=== PATIENT | female | born 1985 | race African-American/Black ===

== ENCOUNTER 2020-07-16 18:56 | Emergency (ER) | payer OTHER ==
[2020-07-16] MEDS ORDERED: NA CHLORIDE 0.9% 1,000 ML ONE (22:00)
[2020-07-16 22:42] LABS: Absolute Lymphocytes (CBC) 2.5 K/uL (0.7-4.9); Basophils % 0.5 % (0-1.3); Hematocrit 47.9 % (36.0-45.0); Lymphocytes % 14.4 % (15.3-44.8); MPV 8.7 fL (7.6-11.3); Protime INR 1.82; RBC Red Blood Cell Count 5.74 M/uL (3.86-4.86)
[2020-07-16] MEDS ORDERED: METHYLPREDNISOLONE 125 MG INJ ONE (22:55)
[2020-07-16] MEDS ORDERED: ALBUTEROL 2.5 MG/3 ML NEB SOL ONE (22:55)
[2020-07-16] MEDS ORDERED: IPRATROPIUM BROM 0.5MG/2.5ML ONE (22:55)
[2020-07-16] MEDS ORDERED: AZITHROMYCIN 500 MG INJ IVPB ONE (22:56)
[2020-07-16] MEDS ORDERED: NA CHLORIDE 0.9% 250 ML ONE (22:56)
[2020-07-16] MEDS ORDERED: FAMOTIDINE 20 MG/2 ML VIAL IV ONE (22:56)
[2020-07-16] MEDS ORDERED: CEFTRIAXONE/SWI 1gm 1 GM/10 ML SYR ONE (22:56)
[2020-07-16 23:11] LABS: ALT/SGPT 27 U/L (12-78); AST/SGOT 28 U/L (15-37); Albumin 2.9 g/dL (3.4-5.0); Alkaline Phosphatase 89 U/L (45-117); BUN Blood Urea Nitrogen 11 mg/dL (7-18); Bicarbonate 26 mmol/L (21-32); Bilirubin Direct 0.1 mg/dL (0-0.2); Bilirubin Total 0.6 mg/dL (0.2-1.0); Glucose Level 114 mg/dL (74-106); Lipase 2078 U/L (73-393); Magnesium 2.1 mg/dL (1.8-2.4); NT PRO-BNP 1098 pg/mL (<125); Potassium 3.5 mmol/L (3.5-5.1); Protein, Total 7.8 g/dL (6.4-8.2); Sodium Level 138 mmol/L (136-145); Troponin (Emerg Dept Use Only) < 0.02 ng/mL (0.0-0.045)
[2020-07-17] MEDS ORDERED: NITROGLYCERIN 1 GM PKT TD ONE (00:56)
[2020-07-17] MEDS ORDERED: ACETAMINOPHEN 500 MG TAB ONE (00:56)
--- NOTE | 2020-07-17 01:00 | ER ---
Nurse's Notes [facility] Name: Mary Pro Age: 34 yrs Sex: Female : 1985 Arrival Date: 07/16/2020 Time: 18:59 Bed 14 Private MD: Diagnosis: Pneumonia, unspecified organism-multifocal , bilateral;Unspecified systolic (congestive) heart failure;Atrial fibrillation and flutter;Essential (primary) hypertension;Obesity, unspecified Presentation: 07/16 19:11 Chief complaint: Patient states: Cough, SOB, dry mouth for 5 days. Covid test negative ll1 Thursday at [place]. No fever. No appetite. Coronavirus screen: Client denies travel out of the [place] in the last 14 days. congestion, cough unrelated to allergies, fatigue, Client presents with at least one sign or symptom that may indicate coronavirus-19. Standard/surgical mask placed on the client. The client reports previous COVID testing was negative. Ebola Screen: Patient denies travel to an Ebola-affected area in the 21 days before illness onset. Initial Sepsis Screen: Does the patient meet any 2 criteria? HR > 90 bpm. No. Patient's initial sepsis screen is negative. Does the patient have a suspected source of infection? Yes: Productive cough/pneumonia. Risk Assessment: Do you want to hurt yourself or someone else? Patient reports no desire to harm self or others. Onset of symptoms was July 11, 2020. 19:11 Method Of Arrival: Ambulatory ll1 19:11 Acuity: ROEL 3 ll1 Historical: - Allergies: 19:15 NKDA; ll1 - PMHx: 19:15 Atrial Fib; Hypertension; ll1 - PSHx: 19:15 mirtral valve replacement; Cholecystectomy; ll1 - Immunization history:: Flu vaccine is not up to date. - Social history:: Smoking status: Patient reports the use of cigarette tobacco products, smokes one-half pack cigarettes per day. - Family history:: not pertinent. Screenin:05 Abuse screen: Denies threats or abuse. Nutritional screening: No deficits noted. jb4 Tuberculosis screening: No symptoms or risk factors identified. Fall Risk None identified. Assessment: 21:05 General: Appears in no apparent distress. uncomfortable, Behavior is calm, cooperative, jb4 appropriate for age. Pain: Complains of pain in chest Pain does not radiate. Pain currently is 8 out of 10 on a pain scale. Neuro: Level of Consciousness is awake, alert, obeys commands, Oriented to person, place, time, situation. Cardiovascular: Patient's skin is warm and dry. Rhythm is atrial fibrillation. Respiratory: Airway is patent Respiratory effort is even, unlabored, Respiratory pattern is regular, symmetrical, Breath sounds with wheezes bilaterally. GI: No signs and/or symptoms were reported involving the gastrointestinal system. : No signs and/or symptoms were reported regarding the genitourinary system. EENT: No signs and/or symptoms were reported regarding the EENT system. Derm: Skin is intact, Skin is dry, Skin is normal. Musculoskeletal: Circulation, motion, and sensation intact. Range of motion: intact in all extremities. 22:00 Reassessment: Patient appears in no apparent distress at this time. Patient and/or jb4 family updated on plan of care and expected duration. Pain level reassessed. Patient is alert, oriented x 3, equal unlabored respirations, skin warm/dry/pink. 22:51 General: patient refused flu and covid test. she said it was negative in [address] last Thursday. . 23:00 Reassessment: Patient appears in no apparent distress at this time. Patient and/or jb4 family updated on plan of care and expected duration. Pain level reassessed. Patient is alert, oriented x 3, equal unlabored respirations, skin warm/dry/pink. Patient states feeling better. Patient states symptoms have improved. 07/17 00:00 Reassessment: Patient appears in no apparent distress at this time. Patient and/or jb4 family updated on plan of care and expected duration. Pain level reassessed. Patient is alert, oriented x 3, equal unlabored respirations, skin warm/dry/pink. 01:00 Reassessment: Patient appears in no apparent distress at this time. Patient and/or jb4 family updated on plan of care and expected duration. Pain level reassessed. Patient is alert, oriented x 3, equal unlabored respirations, skin warm/dry/pink. PT verbalized desire to leave, informed that per physicians advice it would be best to stay. Pt refused. Informed that symptoms could return or worsen to the point of . Pt acknowledged and verbalized understanding of risk. AMA form signed. Vital Signs: 07/16 19:11 BP 156 / 103; Pulse 97; Resp 20; Temp 98.1; Pulse Ox 95% on R/A; Weight 145.15 kg; ll1 Height 5 ft. 4 in. (162.56 cm); Pain 8/10; 23:00 BP 139 / 101; Pulse 61; Resp 16; Pulse Ox 93% on R/A; jb4 07/17 00:15 BP 146 / 111; Pulse 87; Resp 16; Pulse Ox 96% on R/A; jb4 01:00 BP 121 / 88; Pulse 86; Resp 16; Pulse Ox 98% on R/A; jb4 07/16 19:11 Body Mass Index 54.93 (145.15 kg, 162.56 cm) ll1 ED Course: 07/16 18:59 Patient arrived in ED. rg4 19:11 Arm band placed on. ll1 19:14 Triage completed. ll1 21:05 Patient has correct armband on for positive identification. Bed in low position. Call jb4 light in reach. Side rails up X 1. Pulse ox on. NIBP on. 21:12 Adithya Epperson MD is Attending Physician. tim 21:37 Gerry Fowler, ANGELO is Primary Nurse. jb4 22:20 Inserted saline lock: 20 gauge in right antecubital area, using aseptic technique. mg2 Blood collected. 22:42 XRAY Chest (1 view) In Process Unspecified. EDMS 22:50 No provider procedures requiring assistance completed. mg2 07/17 00:12 CT Chest For PE Angio In Process Unspecified. EDMS 00:57 Glen Malhotra MD is Referral Physician. tim 00:57 Damien Melendez MD is Referral Physician. tim 01:14 IV discontinued, intact, bleeding controlled, No redness/swelling at site. Pressure jb4 dressing applied. Administered Medications: 07/16 22:30 Drug: NS 0.9% 1000 ml Route: IV; Rate: 125 ml/hr; Site: right antecubital; mg2 07/17 01:25 Follow up: Response: No adverse reaction; IV Status: Order to discontinue infusion; IV jb4 Intake: 300ml ; PT refused to continue infusion. 07/16 22:49 Drug: Albuterol - atroVENT (3:1) (2.5 mg - 0.5 mg) 3 ml Route: Nebulizer; mg2 23:15 Follow up: Response: No adverse reaction; Marked relief of symptoms jb4 22:49 Drug: Pepcid 20 mg Route: IVP; Site: right antecubital; mg2 23:15 Follow up: Response: No adverse reaction jb4 22:50 Drug: Rocephin 1 grams Route: IV; Rate: per protocol; Site: right antecubital; mg2 23:00 Follow up: Response: No adverse reaction; IV Status: Completed infusion; IV Intake: [id number] 22:50 Drug: Zithromax 500 mg Route: IVPB; Infused Over: 1 hrs; Site: right antecubital; mg2 23:50 Follow up: Response: No adverse reaction; IV Status: Completed infusion; IV Intake: jb4 250ml 22:50 Drug: SOLU-Medrol 125 mg Route: IVP; Site: right antecubital; mg2 23:20 Follow up: Response: No adverse reaction 4 07/17 00:55 Not Given (Duplicate Order): Nitro-Bid Ointment 2 % 1 inches Transdermal once tim 01:14 Drug: Coumadin 5 mg Route: PO; jb4 01:17 Follow up: Response: Medication administered at discharge. jb4 01:15 Drug: Tylenol 1000 mg Route: PO; jb4 01:16 Follow up: Response: Medication administered at discharge. jb4 01:15 Not Given (Patient Refused): Losartan 100 mg PO once jb4 01:15 Drug: Lasix 20 mg Route: IVP; Site: right antecubital; jb4 01:16 Follow up: Response: Medication administered at discharge. jb4 01:15 Drug: Decadron - Dexamethasone 6 mg Route: IVP; Site: right antecubital; jb4 01:16 Follow up: Response: Medication administered at discharge. jb4 Intake: 07/16 23:00 IV: 10ml; Total: 10ml. 4 23:50 IV: 250ml; Total: 260ml. jb4 07/17 01:25 IV: 300ml; Total: 560ml. jb4 Outcome: 01:14 AMA AMA form signed 4 01:14 Condition: stable 01:14 Discharge instructions given to patient, Instructed on discharge instructions, follow up and referral plans. medication usage, Demonstrated understanding of instructions, follow-up care, medications, Prescriptions given X 4. 01:27 Patient left the ED. jb4 Signatures: Dispatcher [employer] EDMS Adithya Epperson MD MD cha Garcia, Rubi rg4 Gerry Fowler RN RN jb4 Toby Youssef RN RN mg2 Sanjuanita Grimm RN RN ll1
--- NOTE | 2020-07-17 01:00 | EDPHYS ---
Physician Documentation [facility] Name: Mary Pro Age: 34 yrs Sex: Female : 1985 Arrival Date: 07/16/2020 Time: 18:59 Bed 14 Private MD: ED Physician Adithya Epperson HPI: 07/16 21:51 This 34 yrs old Black Female presents to ER via Ambulatory with complaints of Breathing tim Difficulty, Cough. 21:51 The patient has shortness of breath at rest, with light activity. Onset: The tim symptoms/episode began/occurred 5 day(s) ago. Duration: The symptoms are continuous, and are steadily getting worse. The patient's shortness of breath is aggravated by coughing, light activity, supine position, is alleviated by sitting up, application of supplemental oxygen. Associated signs and symptoms: The patient has no apparent associated signs or symptoms. Severity of symptoms: At their worst the symptoms were mild moderate in the emergency department the symptoms are unchanged. The patient has experienced similar episodes in the past, a few times. Historical: - Allergies: 19:15 NKDA; ll1 - PMHx: 19:15 Atrial Fib; Hypertension; ll1 - PSHx: 19:15 mirtral valve replacement; Cholecystectomy; ll1 - Immunization history:: Flu vaccine is not up to date. - Social history:: Smoking status: Patient reports the use of cigarette tobacco products, smokes one-half pack cigarettes per day. - Family history:: not pertinent. ROS: 21:51 Constitutional: Negative for fever, chills, and weight loss, Eyes: Negative for injury, tim pain, redness, and discharge, ENT: Negative for injury, pain, and discharge, Neck: Negative for injury, pain, and swelling, Cardiovascular: Negative for chest pain, palpitations, and edema, Abdomen/GI: Negative for abdominal pain, nausea, vomiting, diarrhea, and constipation, Back: Negative for injury and pain, : Negative for injury, bleeding, discharge, and swelling, MS/Extremity: Negative for injury and deformity, Skin: Negative for injury, rash, and discoloration, Neuro: Negative for headache, weakness, numbness, tingling, and seizure, Psych: Negative for depression, anxiety, suicide ideation, homicidal ideation, and hallucinations, Allergy/Immunology: Negative for hives, rash, and allergies, Endocrine: Negative for neck swelling, polydipsia, polyuria, polyphagia, and marked weight changes. 21:51 Respiratory: Positive for cough, "sounds productive", shortness of breath, at rest. wheezing, inspiratory, expiratory. 21:51 MS/extremity: Negative for acute changes. Exam: 21:51 Constitutional: This is a well developed, well nourished patient who is awake, alert, tim and in no acute distress. Head/Face: Normocephalic, atraumatic. Eyes: Pupils equal round and reactive to light, extra-ocular motions intact. Lids and lashes normal. Conjunctiva and sclera are non-icteric and not injected. Cornea within normal limits. Periorbital areas with no swelling, redness, or edema. ENT: Nares patent. No nasal discharge, no septal abnormalities noted. Tympanic membranes are normal and external auditory canals are clear. Oropharynx with no redness, swelling, or masses, exudates, or evidence of obstruction, uvula midline. Mucous membranes moist. Neck: Trachea midline, no thyromegaly or masses palpated, and no cervical lymphadenopathy. Supple, full range of motion without nuchal rigidity, or vertebral point tenderness. No Meningismus. Chest/axilla: Normal chest wall appearance and motion. Nontender with no deformity. No lesions are appreciated. Cardiovascular: Regular rate and rhythm with a normal S1 and S2. No gallops, murmurs, or rubs. Normal PMI, no JVD. No pulse deficits. Abdomen/GI: Soft, non-tender, with normal bowel sounds. No distension or tympany. No guarding or rebound. No evidence of tenderness throughout. Back: No spinal tenderness. No costovertebral tenderness. Full range of motion. Female : Normal external genitalia. Skin: Warm, dry with normal turgor. Normal color with no rashes, no lesions, and no evidence of cellulitis. MS/ Extremity: Pulses equal, no cyanosis. Neurovascular intact. Full, normal range of motion. Neuro: Awake and alert, GCS 15, oriented to person, place, time, and situation. Cranial nerves II-XII grossly intact. Motor strength 5/5 in all extremities. Sensory grossly intact. Cerebellar exam normal. Normal gait. Psych: Awake, alert, with orientation to person, place and time. Behavior, mood, and affect are within normal limits. 21:51 Respiratory: the patient does not display signs of respiratory distress, Respirations: labored breathing, that is mild, Breath sounds: bronchial sounds, that are mild, decreased breath sounds, that are moderate, rhonchi, that are mild, wheezing: inspiratory expiratory Respiratory rate: 20 21:51 Musculoskeletal/extremity: DVT Exam: No signs of deep vein thrombosis. no pain, no swelling, no tenderness, negative Homans' sign noted on exam, no appreciated bluish discoloration, no erythema, no increased warmth. Vital Signs: 19:11 BP 156 / 103; Pulse 97; Resp 20; Temp 98.1; Pulse Ox 95% on R/A; Weight 145.15 kg; ll1 Height 5 ft. 4 in. (162.56 cm); Pain 8/10; 23:00 BP 139 / 101; Pulse 61; Resp 16; Pulse Ox 93% on R/A; jb4 07/17 00:15 BP 146 / 111; Pulse 87; Resp 16; Pulse Ox 96% on R/A; jb4 01:00 BP 121 / 88; Pulse 86; Resp 16; Pulse Ox 98% on R/A; jb4 07/16 19:11 Body Mass Index 54.93 (145.15 kg, 162.56 cm) ll1 MDM: 07/16 21:12 Patient medically screened. tim 21:53 Differential diagnosis: asthma, Bronchitis CHF exacerbation, Chronic Obstructive tim Pulmonary Disease Myocardial Infarction pulmonary edema, Pulmonary Embolism reactive airway disease, Sepsis. Antibiotic administration: Rocephin and Zithromax given. The patient's Wells Deep Vein Thrombosis Score was calculated as follows: Total Score: 0-2 Pts- Low Risk. The patient's pulmonary embolism risk score was calculated as follows: Total Score: 0-2 points. This patient was found to be at low risk for a pulmonary embolism by using the Well's assessment criteria. Immunization status:. Data reviewed: vital signs, nurses notes, lab test result(s), EKG, radiologic studies, CT scan, plain films. Data interpreted: kitchen steward/stewardess: rate is 97 beats/min, rhythm is regular, Pulse oximetry: on room air is 95 %. Test interpretation: by ED physician or midlevel provider: ECG, plain radiologic studies. Counseling: I had a detailed discussion with the patient and/or guardian regarding: the historical points, exam findings, and any diagnostic results supporting the discharge/admit diagnosis, lab results, radiology results, the need for outpatient follow up, for definitive care, a supply chain tech. 07/16 21:34 Order name: Basic Metabolic Panel [facility] 07/16 21:34 Order name: CBC with Diff [facility] 07/16 21:34 Order name: LFT's; Complete Time: 23:52 [facility] 07/16 21:34 Order name: Magnesium; Complete Time: 23:52 [facility] 07/16 21:34 Order name: NT PRO-BNP; Complete Time: 23:52 [facility] 07/16 21:34 Order name: PT-INR; Complete Time: 22:47 [facility] 07/16 21:34 Order name: Troponin (emerg Dept Use Only); Complete Time: 23:52 [facility] 07/16 21:34 Order name: Lipase; Complete Time: 23:52 [facility] 07/16 21:34 Order name: COVID-19 [facility] 07/16 21:34 Order name: Blood Culture Adult (2) [facility] 07/16 21:35 Order name: Basic Metabolic Panel; Complete Time: 23:52 [facility] 07/16 21:35 Order name: CBC with Automated Diff; Complete Time: 22:47 [facility] 07/16 21:34 Order name: XRAY Chest (1 view) [facility] 07/16 21:34 Order name: EKG; Complete Time: 21:36 [facility] 07/16 22:35 Order name: CT Chest For PE Angio [facility] 07/16 21:34 Order name: Cardiac monitoring; Complete Time: 22:50 [facility] 07/16 21:34 Order name: EKG - Nurse/Tech; Complete Time: 22:50 [facility] 07/16 21:34 Order name: IV Saline Lock; Complete Time: 22:50 [facility] 07/16 21:34 Order name: Labs collected and sent; Complete Time: 22:50 [facility] 07/16 21:34 Order name: O2 Per Protocol; Complete Time: 22:50 [facility] 07/16 21:34 Order name: O2 Sat Monitoring; Complete Time: 22:50 [facility] Administered Medications: 22:30 Drug: NS 0.9% 1000 ml Route: IV; Rate: 125 ml/hr; Site: right antecubital; mg2 07/17 01:25 Follow up: Response: No adverse reaction; IV Status: Order to discontinue infusion; IV jb4 Intake: 300ml ; PT refused to continue infusion. 07/16 22:49 Drug: Albuterol - atroVENT (3:1) (2.5 mg - 0.5 mg) 3 ml Route: Nebulizer; mg2 23:15 Follow up: Response: No adverse reaction; Marked relief of symptoms jb4 22:49 Drug: Pepcid 20 mg Route: IVP; Site: right antecubital; mg2 23:15 Follow up: Response: No adverse reaction jb4 22:50 Drug: Rocephin 1 grams Route: IV; Rate: per protocol; Site: right antecubital; mg2 23:00 Follow up: Response: No adverse reaction; IV Status: Completed infusion; IV Intake: [id number] 22:50 Drug: Zithromax 500 mg Route: IVPB; Infused Over: 1 hrs; Site: right antecubital; mg2 23:50 Follow up: Response: No adverse reaction; IV Status: Completed infusion; IV Intake: jb4 250ml 22:50 Drug: SOLU-Medrol 125 mg Route: IVP; Site: right antecubital; mg2 23:20 Follow up: Response: No adverse reaction [facility] 07/17 00:55 Not Given (Duplicate Order): Nitro-Bid Ointment 2 % 1 inches Transdermal once tim 01:14 Drug: Coumadin 5 mg Route: PO; jb4 01:17 Follow up: Response: Medication administered at discharge. jb4 01:15 Drug: Tylenol 1000 mg Route: PO; jb4 01:16 Follow up: Response: Medication administered at discharge. jb4 01:15 Not Given (Patient Refused): Losartan 100 mg PO once jb4 01:15 Drug: Lasix 20 mg Route: IVP; Site: right antecubital; jb4 01:16 Follow up: Response: Medication administered at discharge. jb4 01:15 Drug: Decadron - Dexamethasone 6 mg Route: IVP; Site: right antecubital; jb4 01:16 Follow up: Response: Medication administered at discharge. jb4 Disposition: 07/17/20 00:59 Patient has left against medical advice. Impression: Pneumonia, unspecified organism - multifocal , bilateral, Unspecified systolic (congestive) heart failure, Atrial fibrillation and flutter, Essential (primary) hypertension, Obesity, unspecified. - Patients states they are going to Home. - Condition is Fair. - Discharge Instructions: Heart Failure, Hypertension, Obesity, Adult, Community-Acquired Pneumonia, Adult, Hypertension, [id number], Community-Acquired Pneumonia, Adult, [id number], How to Take Your Blood Pressure, [id number], Managing Your Hypertension. - Prescriptions for dexamethasone 2 mg Oral tablet - take 1 tablet by ORAL route 3 times per day; 15 tablet. Pepcid 20 mg Oral Tablet - take 1 tablet by ORAL route every 12 hours for 10 days; 20 tablet. Albuterol Sulfate 90 mcg/actuation - inhale 1-2 puff by INHALATION route every 4-6 hours; 1 Inhaler. Zithromax 500 mg Oral Tablet - take 1 tablet by ORAL route once daily for 4 days; 4 tablet. Follow up: Private Physician; When: Upon discharge from the Emergency Department; Reason: Recheck today's complaints, Continuance of care, Re-evaluation by your physician. Follow up: Glen Malhotra MD; When: Upon discharge from the Emergency Department; Reason: Recheck today's complaints, Continuance of care, Re-evaluation by your physician. Follow up: Damien Melendez MD; When: Upon discharge from the Emergency Department; Reason: Recheck today's complaints, Continuance of care, Re-evaluation by your physician. - Problem is new. - Symptoms have improved. Signatures: Dispatcher [employer] [facility] Adithya Epperson MD MD cha Bryson, James RN RN jb4 oTby Youssef RN RN mg2 Sanjuanita Grimm RN RN ll1 Corrections: (The following items were deleted from the chart) 07/16 22:06 21:56 D-DIMER+[id number].[id number] ordered. [facility] 07/17 01:27 00:59 07/17/2020 00:59 Patients has left against medical advice. Impression: Pneumonia, jb4 unspecified organism - multifocal , bilateral; Unspecified systolic (congestive) heart failure; Atrial fibrillation and flutter; Essential (primary) hypertension; Obesity, unspecified. Patient states they are going to Home. Condition is Fair. Follow up: Private Physician; When: Upon discharge from the Emergency Department; Reason: Recheck today's complaints, Continuance of care, Re-evaluation by your physician. Follow up: Glen Malhotra; When: Upon discharge from the Emergency Department; Reason: Recheck today's complaints, Continuance of care, Re-evaluation by your physician. Follow up: Damien Melendez; When: Upon discharge from the Emergency Department; Reason: Recheck today's complaints, Continuance of care, Re-evaluation by your physician. Problem is new. Symptoms have improved. tim
[2020-07-17] MEDS ORDERED: FUROSEMIDE 20 MG/ 2ML VIAL ONE (01:17)
[2020-07-17] MEDS ORDERED: WARFARIN SODIUM 5 MG TAB ONE (01:19)
[2020-07-17] MEDS ORDERED: dexAMETHasone 10 MG/ML VIAL ONE (01:19)
[2020-07-17 01:46] VITALS: TEMP 98.1
[2020-07-17 01:50] VITALS: BP 121/88; O2SAT 98
--- NOTE | 2020-07-17 08:21 | RAD REPORT ---
EXAM DESCRIPTION: RAD - Chest Single View - 07/16/2020 10:42 pm CLINICAL HISTORY: Cough;Dyspnea, shortness of breath, patient reports negative COVID test 3-4 days e arlier COMPARISON: Portable September 2015 TECHNIQUE: AP portable chest image was obtained 07/16/2020 10:42 pm . FINDINGS: No focal consolidation typical for bacterial pneumonia. Interstitial markings are mildly p rominent and there is some patchy airspace opacification seen. This is nonspecific pattern that can b e seen with mild alveolar edema as well as mild viral infiltrate. Sternotomy wires have been placed since the prior study. Cardiac silhouette is prominent but not subs tantially different. Pulmonary vasculature within normal limits. No measurable pleural effusion and n o pneumothorax. No acute bony abnormality seen. No acute aortic findings suspected. IMPRESSION: No mass or consolidation typical for a bacterial pneumonia. Interstitial and minimal alveolar opacities are present which are nonspecific and can be seen with ed jan and viral infiltrate.
--- NOTE | 2020-07-17 11:59 | RAD REPORT ---
EXAM DESCRIPTION: CT - Chest For Pe Angio - 07/17/2020 7:06 am CLINICAL HISTORY: Congestion; Dyspnea TECHNIQUE: Contiguous axial images obtained through the chest during angiographic phase following th e uneventful administration of IV contrast. Sagittal and coronal reformatted images were provided. AR P reformatted images were provided. This exam was performed according to our departmental dose-optimization program, which includes autom ated exposure control, adjustment of the mA and/or kV according to patient size and/or use of iterati ve reconstruction technique. COMPARISON: No prior exams provided for comparison. FINDINGS: Diagnostic quality: There is good opacification of the pulmonary arterial tree. Motion art ifact degrades image quality and limits evaluation of segmental and subsegmental vessels. Lungs: Multifocal groundglass opacification/mosaic attenuation bilaterally. Airways are patent. Pleura: No effusion. No pneumothorax. Heart and pericardium: The heart is enlarged. Prosthetic mitral valve. No pericardial effusion. Mediastinum and lucina: No pathologically enlarged lymph nodes. Lower neck and chest wall: Unremarkable Vessels: No pulmonary arterial filling defects. No thoracic aortic aneurysm. Upper abdomen: The liver is enlarged. Bones: Prior median sternotomy. Minimal multilevel spondylosis. IMPRESSION: 1. Motion artifact degrades image quality and limits evaluation of segmental and subse gmental vessels. No central pulmonary embolic disease. 2. Imaging features can be seen with viral pneumonia, though are nonspecific and can occur with a v ariety of infectious and noninfectious processes. PneInd Reference: https://pubs.rsna.org/doi/full/10 [email or web address]/ryct.[email or web address]. 3. Other findings as above. Electronically signed by: Rohan Palumbo MD 07/17/2020 12:17 AM NETWORK DESIGNER Due to temporary technical issues with the PACS/Fluency reporting system, reports are being signed by the in house radiologist without review as a courtesy to ensure prompt reporting. The interpreting r adiologist is fully responsible for the content of the report.
--- NOTE | 2020-07-17 16:07 | EKG ---
Test Date: 2020-07-16 Test Time: 22:05:54 Pole Classifier: MEASUREMENT RESULTS: Intervals: Rate: 68 HI: QRSD: 94 QT: 388 QTc: 412 [place]: P: HI: QRS: 91 T: 60 INTERPRETIVE STATEMENTS: Atrial fibrillation with premature ventricular or aberrantly conducted complexes Rightward axis Abnormal ECG Compared to ECG 10/06/2015 05:47:12 Ventricular premature complex(es) now present Right-axis deviation now present Electronically Signed On 07-17-20 16:05:26 SENIOR JAVA WEB DEVELOPER by Damien Melendez
== END 2020-07-17 01:27 | disposition left against medical advice (07) ==
LOC: ER 18:56
DX: J18.9 Pneumonia, unspecified organism (principal); I50.20 Unspecified systolic (congestive) heart failure; I48.91 Unspecified atrial fibrillation; I48.92 Unspecified atrial flutter; I10 Essential (primary) hypertension; E66.9 Obesity, unspecified; F17.210 Nicotine dependence, cigarettes, uncomplicated; Z95.4 Presence of other heart-valve replacement
CPT/HCPCS: 96365; 96361; 93005; 87040 ×2; 85025; 80048; 36415; 83735; 85610; 80076; 84484; 83690; 83880; 71275; 71045; 96375; 99285; Q9967; J1940; J0456; J1100; J0696; J7050; J7030; J2930